=== PATIENT | female | born 1950 | race Caucasian/White ===

== ENCOUNTER 2016-11-15 11:09 | Inpatient (IN) | payer MEDICARE ==
[~2016-11-15] VITALS: Ht 162.6 cm; Wt 67.0 kg
[~2016-11-15 11:09] MED LIST: ALPRAZOLAM0.25 MG PO; ASPIRIN EC81 MG PO; CALCIUM500 M1 PO; CETIRIZINE HCL10 MG PO; CONSTULOSE10 GM/15 M PO; DIPHENHYDRAMINE25 MG PO; FISH OIL500 MG PO; FUROSEMIDE20 MG PO; FUROSEMIDE40 MG PO; LOSARTAN POTASS50 MG PO; MAGNESIUM250 M1 PO; MIRAPEX0.125 MG PO; MULTIVITAMINS1 EAC7 PO; NADOLOL20 MG PO; NICOTINE PATCH1 EA TD; OMEPRAZOLE20 MG PO; PRAMIPEXOLE0.125 MG PO; PROMETHAZINE HC25 M1 PO; SIMVASTATIN20 MG PO; SPIRONOLACTONE100 MG PO; SPIRONOLACTONE50 MG PO; VITAMIN D5000 UNIT PO; VITAMIN E400 UNI1 PO; XIFAXAN550 MG PO
--- NOTE | 2016-11-15 15:40 | NUR ---
MED REC COMPLETE [facility] REFILL HISTORY AND PATIENT DISCHRAGE FROM [facility] FROM A FEW DAYS AGO.
--- NOTE | 2016-11-15 17:16 | NUR ---
PT ARRIVED ON THE FLOOR FROM ER. PT WAS AWAKE AND CALM, WITH EYES OPEN. PT STATED SHE IS "VERY WEAK". PT WAS REMINDED THAT SHE MUST CALL PRIOR TO GETTING UP OR SHE WILL BE MOVED TO ANOTHER ROOM. PT AGREED TO CALL PRIOR TO GETTING UP.
--- NOTE | 2016-11-15 17:57 | NUR ---
PT ATE 50% OF DINNER MEAL. PT STATES NO PAIN. PT INCONT OF URINE X2. K RIDER AND MAG RIDER GIVEN, PT TOLERATED WELL.
--- NOTE | 2016-11-15 20:39 | NUR ---
PT ASSESSMENT COMPLETE. PT ALERT AND ORIENTED, RESTING IN BED. PT ON ROOM AIR. LUNG SOUNDS CLEAR, STATES "A LITTLE" SOB. WILL CONTINUE TO MONITOR. IV SALINE LOCKED, FLUSHES WELL, PATENT AND INTACT. PT REQUESTING HOME MEDS OF MIRAPEX FOR RLS AND XANAX FOR ANXIETY, CALLED MD AND RECEIVED NEW ORDERS FOR BOTH MEDS. PT DENIES ANY N/V AT THIS TIME. CALL LIGHT WITHIN REACH. PT DENIES ANY FURTHER NEEDS AT THIS TIME.
--- NOTE | 2016-11-15 23:46 | NUR ---
PT INCONTINENT OF STOOL AND URINE, CHANGED ATTENDS. PT ABLE TO REPOSITION SELF. PT DENIES ANY FURTHER NEEDS AT THIS TIME. CALL LIGHT WITHIN REACH.
--- NOTE | 2016-11-16 00:30 | NUR ---
NEW IV PLACED IN RIGHT AC, FLUSHES WELL, SALINE LOCKED. SUCCESSFUL IV START AFTER 6 ATTEMPTS BY MULTIPLE STAFF NURSES.
--- NOTE | 2016-11-16 01:54 | NUR ---
PT C/O BACK PAIN, NO PAIN MEDICATION AVAILABLE ON EMAR, HEAT PACK APPLIED TO LOWER BACK FOR COMFORT. PT DENIES ANY FURTHER NEEDS AT THIS TIME. CALL LIGHT WITHIN REACH.
--- NOTE | 2016-11-16 04:40 | NUR ---
PT SLEEPING, RR EVEN AND UNLABORED. PT APPEARS COMFORTABLE AT THIS TIME. CALL LIGHT WITHIN REACH.
--- NOTE | 2016-11-16 06:11 | NUR ---
PT HAD AN UNEVENTFUL NIGHT, SLEPT MOST OF NIGHT. PT DENIED ANY N/V THIS SHIFT. PT ON ROOM AIR. IV SALINE LOCKED. PT C/O BACK PAIN, HEAT PACKS APPLIED. PT INCONTINENT OF STOOL AND URINE. NEW IV STARTED IN RIGHT AC, FLUSHES WELL.
--- NOTE | 2016-11-16 08:14 | NUR ---
PATIENT SITTING UP IN BED, FULL BODY SKIN ASSESMENT DONE. NOTED SOME REDNESS TO COCCYX, PLAN TO PLACE ALLEVYN FOAM DSG TO COCCYX TO PREVENT BREAKDOWN AND ENCOURAGE PATIENT TO CHANGE POSITIONS IN BED THROUGHOUT DAY. POC DISCUSSED WITH CANDLE MAKER. LUNG SOUND COURSE THROUGHOUT AND DIMINISHED IN BASES. PATIENT REPORTED FEELING VERY ANXIOUS THIS MORNING, NOTED SOME SOB. ADMINISTERED PRN ANXIETY MEDICAITON. PATIENT NOW BREATHING EASY AND BRUSHING TEETH.
--- NOTE | 2016-11-16 11:34 | NUR ---
PLAN TO HAVE PARACENTESIS DONE THIS AFTERNOON, PER DR. PENA. SUPPLIES IN ROOM. PATIENT VERABLIZED UNDERSTANDING. NO COMPLAINTS OF PAIN. VOIDING STOOL X2 AND INCONTINENT OF URINE. ABDOMEN ROUND, PATIENT HAS COMPLAINTS OF SOB WITH EXERTION IN BED.
--- NOTE | 2016-11-16 13:32 | NUR ---
PATIENT LAYING AT 30 DEGREE ANGLE, APPEARS TO BE BREATHING EASY. INFORMED PATIENT WOULD BE LATER THIS AFTERNOON BEFORE DR. PENA WOULD BE ABLE TO PERFORM PARACENTESIS. NO COMPLAINTS OF PAIN AT THIS TIME. BOWEL TONES ACTIVE. LUNG SOUNDS COURSE THROUGHOUT. ENCOURAGED PATIENT TO USE IS. CONTINUES TO BE INCONTINTENT OF URINE AND STOOL. PROVIDING PATIENT WITH BARRIER CREAM.
--- NOTE | 2016-11-16 14:25 | NUR ---
PT BACK AFTER BEING DC'D LAST WEEK. SHE ADMITTED SHE IS VERY WEAK, AND WITH A TEAR IN HER EYE AFRAID SHE IS GOING TO . SHE ADMITTED THAT SHE HAS 6 "BEAUTIFUL" G.KIDS THAT SHE STILL WANTS TO SPOIL. WE TALKED ABOUT HER FEAR, AND HOW SHE STILL DOESN'T WANT THE SALES LEADER TO VISIT YET, BUT IS WANTING ME TO CONTINUE VISITING. WE PRAYED FOR HER BACK AND STOMACH TO STOP ACHING, AND FOR THE FLUID TO SUBSIDE, AND ALLOW HER TO BREATH BETTER. FLUID WILL BE DRAWN OFF LATER TODAY. WILL CONTINUE TO FOLLOW NEEDED
--- NOTE | 2016-11-16 18:10 | NUR ---
DR PENA TO ROOM TO PERFORM PARACENTESIS, PATIENT TOLERATING WELL. DRAINING YELLOW FLUID.
--- NOTE | 2016-11-16 18:40 | NUR ---
PARACENTESIS DONE THIS EVENING AT 1800 2.5L OF YELLLOW FLUID. PATIENT STATES " I FEEL SO MUCH BETTER", NOW LAYING MORE FLAT IN BED AND BREATHING EASY. VS STABLE THROUGHOUT DAY. ORAL K+ RIDER ADMINISTERED. PATIENT SAT ON EDGE OF BED, INCONTINENT THROUGHOUT DAY. APPETITE DECREASED FROM FLUID PRESSURE DURING DAY. LUNG SOUNDS COURSE THROUGHOUT.
--- NOTE | 2016-11-16 20:27 | NUR ---
PT ASSESSMENT COMPLETE. PT DENIES ANY PAIN, N/V, SOB. PT STATES FEELING MUCH BETTER SINCE "GETTING THE FLUID OFF MY BELLY TODAY". PT ON ROOM AIR. PT NOW SALINE LOCKED AFTER IV ABX. HS MEDS GIVEN. CALL LIGHT WITHIN REACH. PT DENIES ANY FURTHER NEEDS AT THIS TIME.
--- NOTE | 2016-11-17 00:15 | NUR ---
PT SLEEPING, RR EVEN AND UNLABORED. IV SALINE LOCKED. PT APPEARS COMFORTABLE. CALL LIGHT WITHIN REACH.
--- NOTE | 2016-11-17 04:30 | NUR ---
PT INCONTINENT OF STOOL AND URINE, CHANGED ATTENDS. PT ABLE TO REPOSITION SELF. PT DENIES ANY FURTHER NEEDS AT THIS TIME. CALL LIGHT WITHIN REACH.
--- NOTE | 2016-11-17 05:18 | NUR ---
DW WAS TAKEN THIS MORNING IN BED. BLANKETS AND EXTRA BEDDING WERE REMOVED.
--- NOTE | 2016-11-17 06:24 | NUR ---
PT HAD AN UNEVENTFUL NIGHT, SLEPT MOST OF NIGHT. PT INCONTINENT OF STOOL AND URINE. PT REFUSES TO GET OUT OF BED TO USE COMMODE. IV SALINE LOCKED, RECEIVING IV ABX. PT DENIED ANY PAIN, SOB, N/V THIS SHIFT. PT ALERT AND ORIENTED, PLEASANT.
--- NOTE | 2016-11-17 09:41 | NUR ---
PATIENT UP IN RECLINER, AUTO MECHANICS INSTRUCTOR PROVIDED BED BATH. PATIENT STATES " I AM FEELING WAY BETTER TODAY" LUNG SOUNDS COURSE THROUGHOUT. ABDOMEN SOFT, BOWEL TONES ACTIVE. NO COMPLAINTS OF PAIN. PATIENT REPORTS FEELING VERY WEAK WHEN ATTEMPTIING TO TRANSFER TO RECLINER.
--- NOTE | 2016-11-17 14:00 | NUR ---
PATIENT UP TO BSC, THEN TO RECLINER. EATING WELL, NO SOB. ABDOMEN CONTINUES TO BE SOFT, BOWEL TONES ACTIVE. PATIENT STATES " THIS IS A GOOD DAY".
--- NOTE | 2016-11-17 14:08 | NUR ---
GAVE PT A PRAYER SHAWL, BRIGHT PINK TO LIVEN THINGS UP! SHE SEEMED VERY THANKFUL. TALK TODAY IS OF HER LACK OF MOTIVATION TO GET UP AND WALK. WE DISCUSSED SOME OPTIONS TO ENCOURAGE HER AND KNOW THAT P.T. IS COMING! SHE JOKED ABOUT IT, A WAY TO SOFTEN THE BLOW OF HER OWN LACK OF MOTIVATION. PT REQUESTED PRAYER, WILL CONTINUE TO FOLLOW
--- NOTE | 2016-11-17 17:21 | NUR ---
Checked in room patient needed to be changed.
--- NOTE | 2016-11-17 20:20 | NUR ---
PT ASSESSMENT COMPLETE. PT DENIES ANY PAIN, N/V, SOB. ABD SOFT, NON-TENDER. IV NOW SALINE LOCKED, PATENT AND INTACT. PT ON ROOM AIR. PT RESTING IN BED WATCHING TV. PRN XANAX GIVEN WITH HS MEDS PER PT REQUEST. CALL LIGHT WITHIN REACH. PT DENIES ANY FURTHER NEEDS AT THIS TIME.
--- NOTE | 2016-11-17 22:46 | NUR ---
PT INCONTINENT OF URINE, CHANGED ATTENDS. PT RESTING COMFORTABLY IN BED. DENIES ANY FURTHER NEEDS AT THIS TIME. CALL LIGHT WITHIN REACH.
--- NOTE | 2016-11-18 01:03 | NUR ---
PT SLEEPING, RR EVEN AND UNLABORED. PT APPEARS COMFORTABLE AT THIS TIME. CALL LIGHT WITHIN REACH.
--- NOTE | 2016-11-18 05:08 | NUR ---
PT INCONTINENT OF STOOL AND URINE. RICK AREA EXCORIATED, DESITIN APPLIED. CHANGED ATTENDS. CALL LIGHT WITHIN REACH. PT DENIES ANY FURTHER NEEDS AT THIS TIME.
--- NOTE | 2016-11-18 10:00 | NUR ---
PATIENT UP SHOWERED, IN RECLINER. FULL BODY ASSESMENT DONE. PLAN TO DISCHARGE TO [facility] TODAY.
--- NOTE | 2016-11-18 11:39 | NUR ---
PT RESTING IN BED, WITH HER MAG IN RM. HE WAS POLITE, SHOOK MY HAND, AND LISTEN PT AND I CONNECTED. SHE HAD AWAN SHE SAID HER D.IN LAW BROUGHT HER. SHE SLEPT FAIRLY WELL AND SAID THAT SHE IS TO BE DC'D TODAY. AT THAT POINT HER WENT ON A RANT THAT SHE WAS HERE LAST WEEK, AND SHOULD NEVER BEEN SENT HOME-HE THINKS BECAUSE HE STATES, "[facility] ARE MAKING MEDICAL DECISIONS". FLUID WAS DRAWN OFF PT'S ABDOMEN AND SHE SAID THAT SHE CAN BREATH MUCH EASIER. SHE MENTIONED THAT SHE SLEPT WITH HER PRAYER KARENWL AND TO BE SURE TO THANK THE VOLUNTEERS THAT MADE IT. WILL CONTINUE TO FOLLOW NEEDED
--- NOTE | 2016-11-18 12:44 | NUR ---
TALKED WITH PT THIS AM, INFORMED HER THAT DR THINKS SHE NEEDS TO GO TO A SNF FOR REHAB FOR STRENGTHENING, PT STATES SHE DOES NOT WANT TO GO TO [facility]. AND WILL TALK WITH HER TODAY WHEN HE GETS HERE ABOUT WHERE. WHEN HERE I WENT IN TO TALK WITH HIM AND HE STARTED TALKING ABOUT WHY SHE WAS DC'D LAST WEEK AND HAD TO COME BACK INTO THE HOSPITAL--HE SENT HER HOME TO [facility]. I TOLD HIM I WOULD HAVE THE DR COME AND TALK WITH HIM ABOUT THAT. HE STATED HE DIDN'T WANT HER TO GO HOME AND WHY COULDN'T WE JUST KEEP HER HERE. AGAIN STATED I WOULD HAVE THE DR COME TALK WITH HIM. RECIEVED A MESSAGE THAT SHE DIDN'T WANT TO GO BACK THERE BECAUSE WHILE SHE WAS THERE SHE HAD A ROOMMATE THAT WAS CONFUSED AND TALKED TO HERSELF AND THEY ASKED IF SHE COULD BE CHANGED TO A DIFFERENT ROOM, SHE HAD A CONFUSED TALKATI VE PERSON. VERY UNHAPPY WITH THIS. I TALKED WITH ANTHONYKARLOS AT [facility] AND SHE ASSURED ME THAT SHE WOULD SEE THAT SHE DID NOT HAVE A CONFUSED TALKATIVE ROOMATE WHILE SHE IS THERE. FAXED CHART NOTES, ORDERS, RX, PASRR, ER NOTES, H AND P, PROG NOTES, IMAGING, MEDS, LAB, AND PT EVAL AND NOTES TO T.
[2016-11-18] MEDS ORDERED: DESITIN57 GM TOP (13:52)
[2016-11-18] MEDS ORDERED: MILK OF MA400 MG/5 M PO (14:02)
[2016-11-18] MEDS ORDERED: DULCOLAX10 MG PR (14:02)
[2016-11-18] MEDS ORDERED: FLEET ENEMA133 ML PR (14:03)
[2016-11-18] MEDS ORDERED: NICOTINE PATCH1 EA TD (14:05)
[2016-11-18] MEDS ORDERED: MIRAPEX0.25 MG PO (14:05)
[2016-11-18] MEDS ORDERED: ALPRAZOLAM0.25 MG PO (14:07)
== END 2016-11-18 14:39 | DRG 442 ==
LOC: ED 11:09 → MS 11:11
PROVIDERS: ADMIT Internal Medicine
PROC: 0W9G3ZX Drainage of Peritoneal Cavity, Percutaneous Approach, Diagnostic (ICD-10-PCS; principal; 2016-11-16)
DX: K72.90 Hepatic failure, unspecified without coma (principal); E87.1 Hypo-osmolality and hyponatremia; I85.00 Esophageal varices without bleeding; F10.21 Alcohol dependence, in remission; F17.210 Nicotine dependence, cigarettes, uncomplicated; K70.31 Alcoholic cirrhosis of liver with ascites
CPT/HCPCS: 36415; 49082; 49083; 71020; 76705; 80048; 80053; 81001; 82140; 82150; 82945; 83615; 83690; 83735; 84100; 84157; 84484; 85025; 85610; 85730; 87070; 87075; 87205; 96360; 97110; 97162; 99285; 99406; G0480; G8978; G8979; J0698; J3475; J3480; J7040

== ENCOUNTER 2017-12-09 19:05 | Emergency (ER) | payer MEDICARE ==
[~2017-12-09] VITALS: Ht 162.6 cm; Wt 61.2 kg
[~2017-12-09 19:05] MED LIST changes: +DESITIN57 GM TOP; +DULCOLAX10 MG PR; +FLEET ENEMA133 ML PR; +MILK OF MA400 MG/5 M PO; +MIRAPEX0.25 MG PO
[2017-12-09] MEDS ORDERED: ALDACTONE25 MG PO (19:22)
[2017-12-09] MEDS ORDERED: MAGNESIUM100 MG PO (19:23)
[2017-12-09] MEDS ORDERED: K-TAB ER20 MEQ PO (19:23)
== END 2017-12-09 20:00 | disposition home or self-care (01) ==
LOC: ED 19:05
PROC: 0HQDXZZ Repair Right Lower Arm Skin, External Approach (ICD-10-PCS; principal; 2017-12-09)
DX: S51.811A Laceration without foreign body of right forearm, initial encounter (principal); S01.03XA Puncture wound without foreign body of scalp, initial encounter; W10.9XXA Fall (on) (from) unspecified stairs and steps, initial encounter; I10 Essential (primary) hypertension; E78.00 Pure hypercholesterolemia, unspecified; F17.200 Nicotine dependence, unspecified, uncomplicated; Z88.5 Allergy status to narcotic agent; Z79.899 Other long term (current) drug therapy
CPT/HCPCS: 90471; 90715; 99282

== ENCOUNTER 2018-03-23 22:05 | Emergency (ER) | payer MEDICARE ==
[~2018-03-23] VITALS: Ht 162.6 cm; Wt 63.9 kg
--- OUTSIDE RECORDS SUMMARY | ~2018-03-23 | XMS | Clinical Summary ---
Demographics + + + | Address | [address] | | | [place] [address] | + + + | Home Phone | | + + + | Preferred Language | Unknown | + + + | Marital Status | | + + + | Mu-Ism Affiliation | 1041 | + + + | Race | Unknown | + + + | Ethnic Group | Unknown | + + + Author + + + | Author | [facility] | | | and [place] | + + + | Organization | [facility] | | | and [place] | + + + | Address | Unknown | + + + | Phone | Unavailable | + + + Support + + + + + | Name | Relationship | Address | Phone | + + + + + | Toribio Davila | [address] | [place] [address] | | | | | [place] [address] | | + + + + + Care Team Providers + +------+ + | Care Pre Fabricator Name | Role | Phone | + +------+ + | Taj Teixeira DO | PP | Unavailable | + +------+ + Allergies + + + + + + | Active Allergy | Reactions | Severity | Noted | Comments | | | | | Date | | + + + + + + | Oxycodone | Itching | Low | 01/25/20 | | | | | | 13 | | + + + + + + Current Medications + + + +---------+------+------+-------+ | Prescription | Sig. | Disp. | Refills | Star | End | Statu | | | | | | t | Date | s | | | | | | Date | | | + + + +---------+------+------+-------+ | nadolol (CORGARD) | Take 10 mg by mouth | | | | | Activ | | 20 MG tablet | Daily. | | | | | e | + + + +---------+------+------+-------+ | HYDROmorphone | Take 0.5 tablets by | 20 | 0 | 08/3 | | Activ | | (DILAUDID) 2 mg | mouth every 4 hours | tablet | | 1/20 | | e | | tablet | as needed for Pain. | | | 16 | | | + + + +---------+------+------+-------+ | lactulose 10 g/15 | Take 30 mLs by mouth | 946 mL | 3 | 08/3 | | Activ | | mL solution | 2 times daily. | | | 1/20 | | e | | | | | | 16 | | | + + + +---------+------+------+-------+ | spironolactone | Take 1 tablet by | 60 | 3 | 08/3 | | Activ | | (ALDACTONE) 100 MG | mouth 2 times daily. | tablet | | 1/20 | | e | | tablet | | | | 16 | | | + + + +---------+------+------+-------+ | omeprazole | Take 1 capsule by | 30 | 1 | 08/3 | | Activ | | (PRILOSEC) 20 mg | mouth every morning | capsule | | 1/20 | | e | | capsule | (before breakfast). | | | 16 | | | + + + +---------+------+------+-------+ | furosemide (LASIX) | Take 1 tablet by | 60 | 1 | 08/3 | | Activ | | 40 mg tablet | mouth Daily. | tablet | | 1/20 | | e | | | | | | 16 | | | + + + +---------+------+------+-------+ | pramipexole | Take 0.125 mg by | | | | | Activ | | (MIRAPEX) 0.125 MG | mouth nightly. Take | | | | | e | | tablet | three at bedtime | | | | | | + + + +---------+------+------+-------+ | ALPRAZolam (XANAX) | Take 0.25 mg by | | | | | Activ | | 0.25 mg tablet | mouth 3 times daily | | | | | e | | | as needed for | | | | | | | | Anxiety. | | | | | | + + + +---------+------+------+-------+ | traMADol (ULTRAM) | Take 50 mg by mouth | | | | | Activ | | 50 mg tablet | every 6 hours as | | | | | e | | | needed for Pain. | | | | | | + + + +---------+------+------+-------+ Active Problems + + + | Problem | Noted Date | + + + | Smoker - Daily | 03/09/2016 | + + + | Restless leg syndrome | 03/09/2016 | + + + | Beta Jeremi Use | 03/09/2016 | + + + | Spontaneous bacterial peritonitis (HCC) | 01/15/2016 | + + + | Type 2 diabetes mellitus without complication (HCC) | 01/08/2016 | + + + | Hyponatremia | 01/07/2016 | + + + | Special screening for malignant neoplasms, colon | 06/11/2014 | + + + | Esophageal varices without mention of bleeding | 06/11/2014 | + + + + + | Overview: ICD-10 Record update | + + + +---+ | Melanoma in situ (HCC) | | + +---+ + + | Overview: left thigh | + + + +---+ | Alcohol dependence (HCC) | | + +---+ | Hypertension | | + +---+ | Impaired fasting glucose | | + +---+ | Chronic liver disease | | + +---+ | Ascites | | + +---+ | Cirrhosis (HCC) | | + +---+ | Esophageal varices (HCC) | | + +---+ Immunizations + + + + | Name | Dates Previously Given | Next Due | + + + + | PNEUMOCOCCAL | 12/29/2010 | | | POLYSACCHARIDE | | | | 23-VALENT (PPSV23) | | | + + + + Family History + + +------+ + | Medical History | Relation | Name | Comments | + + +------+ + | Alcohol abuse | Brother | | | + + +------+ + | Alcohol abuse | Father | | | + + +------+ + | Stroke | Father | | | + + +------+ + | Heart attack | Mother | | | + + +------+ + | Stroke | Mother | | | + + +------+ + | Diabetes | Other | | | + + +------+ + | High blood pressure | Other | | | + + +------+ + | High cholesterol | Other | | | + + +------+ + | Cancer | Sister | | BREAST | + + +------+ + + +------+ + + | Relation | Name | Status | Comments | + +------+ + + | Brother | | | | + +------+ + + | Father | | | | + +------+ + + | Mother | | | | + +------+ + + | Other | | | | + +------+ + + | Sister | | Alive | | + +------+ + + Social History + + + +--------+------+ | Tobacco Use | Types | Packs/Day | Years | Date | | | | | Used | | + + + +--------+------+ | Current Every Day | Cigarettes | 0.5 | 20 | | | Smoker | | | | | + + + +--------+------+ + +---+---+---+ | Smokeless Tobacco: | | | | | Never Used | | | | + +---+---+---+ + + | Tobacco Cessation: Ready to Quit: No; Counseling Given: Yes | + + + + +---------+ + | Alcohol Use | Drinks/We | oz/Week | Comments | | | ek | | | + + +---------+ + | No | | | binge drinker quit one week ago 01/18/13 | + + +---------+ + + + + | Sex Assigned at | Date Recorded | | | | + + + | Not on file | | + + + Last Filed Vital Signs + + + + | Vital Sign | Reading | Time Taken | + + + + | Blood Pressure | 110/57 | 03/09/20161444 PDT | + + + + | Pulse | 76 | 03/09/20161444 PDT | + + + + | Temperature | 36.1 C (97 F) | 03/09/20161311 PDT | + + + + | Respiratory Rate | 18 | 03/09/20161444 PDT | + + + + | Oxygen Saturation | 97% | 03/09/20161444 PDT | + + + + | Inhaled Oxygen | - | - | | Concentration | | | + + + + | Weight | 80.2 kg (176 lb 12.9 | 01/11/2016639 PDT | | | oz) | | + + + + | Height | 162.6 cm (5' 4") | 01/07/2016 1421 PDT | + + + + | Body Mass Index | 30.35 | 01/11/2016639 PDT | + + + + Plan of Treatment + + + + + | Health Maintenance | Due Date | Last Done | Comments | + + + + + | Hepatitis C | | | | | Screening | 0 | | | + + + + + | Diabetic Eye Exam | | | | | | 8 | | | + + + + + | Diabetic Foot Exam | | | | | | 8 | | | + + + + + | Vaccine: | | | | | Dtap/Tdap/Td (1 - | 9 | | | | Tdap) | | | | + + + + + | BREAST CANCER | | | | | SCREENING (MAMM Q2 | 0 | | | | YEARS 50-74) | | | | + + + + + | Vaccine: Zoster (1 | | | | | of 2) | 0 | | | + + + + + | Vaccine: | | 12/29/2010 | | | Pneumococcal 65+ | 5 | | | | Low/Medium Risk (1 | | | | | of 2 - PCV13) | | | | + + + + + | Adult Annual | | | | | Wellness Visit | 5 | | | + + + + + | Microalbumin | | | | | Screening | 5 | | | + + + + + | Hemoglobin A1c Q3 | | 01/07/2016, 05/01/2014 | | | Months | 6 | | | + + + + + | Vaccine: Influenza | | | | | (#1) | 8 | | | + + + + + | Colorectal Cancer | | 06/16/2014, 06/16/2014 | | | Screening | 5 | | | | (Colonoscopy) | | | | + + + + + Results Not on filefrom Last 3 Months Insurance + +--------+ +--------+ +---------+ | Payer | Benefi | Subscriber | Type | Phone | Address | | | t Plan | ID | | | | | | / | | | | | | | Group | | | | | + +--------+ +--------+ +---------+ | MEDICARE | MEDICA | [id number] | Medica | [phone] | | | | RE | | re | [phone] | | | | PART A | | | | | | | AND B | | | | | + +--------+ +--------+ +---------+ | AARP | AARP | [id number] | Indemn | [phone] | | | | MDCR | | ity | [phone] | | | | SUPPL | | | | | + +--------+ +--------+ +---------+ + +--------+ +--------+ + + | Guarantor Name | Accoun | Relation to | Date | Phone | Billing Address | | | t Type | Patient | of | | | | | | | | | | + +--------+ +--------+ + + | VANNESA DAVILA | Person | Self [birth year] Home: | [address] [employer] | | | al/Fam | | [phone] | [phone] | [place] [address] | | | corrine | | | [phone] | | + +--------+ +--------+ + +
--- OUTSIDE RECORDS SUMMARY | ~2018-03-23 | XMS | Clinical Summary ---
Demographics + + + | Address | [address] | | | [place] [address] | + + + | Home Phone | | + + + | Preferred Language | Unknown | + + + | Marital Status | | + + + | Latter Day Affiliation | 1041 | + + + | Race | Unknown | + + + | Ethnic Group | Unknown | + + + Author + + + | Author | [facility] | + + + | Organization | [facility] | + + + | Address | Unknown | + + + | Phone | Unavailable | + + + Support + + + + + | Name | Relationship | Address | Phone | + + + + + | Ja Davila | ECON | [address] | | | | | [place] [address] | | + + + + + Care Team Providers + +------+ + | Care Custom Miller Name | Role | Phone | + +------+ + | Humphrey Teixeira DO | PP | | + +------+ + Allergies + + + + + + | Active Allergy | Reactions | Severity | Noted | Comments | | | | | Date | | + + + + + + | Oxycodone | Itching | Medium | 12/31/19 | | | | | | 15 | | + + + + + + Current Medications + + + +---------+------+------+-------+ | Prescription | Sig. | Disp. | Refills | Star | End | Statu | | | | | | t | Date | s | | | | | | Date | | | + + + +---------+------+------+-------+ | simvastatin | Take 20 mg by mouth | | | | | Activ | | (ZOCOR) 20 MG tablet | nightly. | | | | | e | + + + +---------+------+------+-------+ | nadolol (CORGARD) | Take 10 mg by mouth | | | | | Activ | | 20 MG tablet | daily. | | | | | e | + + + +---------+------+------+-------+ | spironolactone | Take 100 mg by mouth | | | | | Activ | | (ALDACTONE) 100 MG | daily. | | | | | e | | tablet | | | | | | | + + + +---------+------+------+-------+ | omeprazole | Take 20 mg by mouth | | | | | Activ | | (PRILOSEC) 20 MG | 2 (two) times daily. | | | | | e | | capsule | | | | | | | + + + +---------+------+------+-------+ | pramipexole | Take 0.125 mg by | | | | | Activ | | (MIRAPEX) 0.125 MG | mouth every evening. | | | | | e | | tablet | | | | | | | + + + +---------+------+------+-------+ | cetirizine | Take 10 mg by mouth | | | | | Activ | | (ZYRTEC) 10 MG | daily. | | | | | e | | tablet | | | | | | | + + + +---------+------+------+-------+ | Multiple Vitamin | Take 1 tablet by | | | | | Activ | | (MULTIVITAMIN) | mouth daily. | | | | | e | | tablet | | | | | | | + + + +---------+------+------+-------+ | fish oil omega-3 | Take 500 mg by mouth | | | | | Activ | | fatty acids 1000 MG | daily. | | | | | e | | capsule | | | | | | | + + + +---------+------+------+-------+ | diphenhydrAMINE | Take 25 mg by mouth | | | | | Activ | | (SOMINEX) 25 MG | nightly as needed | | | | | e | | tablet | for Sleep. | | | | | | + + + +---------+------+------+-------+ | thiamine (VITAMIN | Take 1 tablet by | 7 | 11 | 08/1 | | Activ | | B-1) 100 MG tablet | mouth daily. | tablet | | 4/20 | | e | | | | | | 15 | | | + + + +---------+------+------+-------+ | Cholecalciferol | Take 5,000 Units by | | | | | Activ | | 5000 UNITS capsule | mouth daily. | | | | | e | + + + +---------+------+------+-------+ | lactobacillus | Take 1 packet by | 30 each | 0 | 04/0 | | Activ | | (FLORANEX) granules | mouth 2 (two) times | | | 3/20 | | e | | | daily. | | | 16 | | | + + + +---------+------+------+-------+ | rifaximin | Take 1 tablet by | 60 | 1 | 04/0 | | Activ | | (XIFAXAN) 550 MG | mouth 2 (two) times | tablet | | 3/20 | | e | | TABS | daily. | | | 16 | | | + + + +---------+------+------+-------+ Active Problems + + + | Problem | Noted Date | + + + | Intestinal infection due to Clostridium difficile | 08/20/2015 | + + + | Acute upper GI bleed | 08/18/2015 | + + + | Secondary esophageal varices with bleeding (HCC) | 08/18/2015 | + + + | Elevated lipase | 08/18/2015 | + + + | Current smoker | 08/18/2015 | + + + | Abnormal LFTs | 08/18/2015 | + + + | HTN (hypertension) | 12/30/2014 | + + + | Alcoholic cirrhosis of liver | 12/30/2014 | + + + | Hyposmolality and/or hyponatremia | 12/30/2014 | + + + | Alcoholism (HCC) | 12/30/2014 | + + + | Hypomagnesemia | 12/30/2014 | + + + Immunizations + + + + | Name | Dates Previously Given | Next Due | + + + + | Pneumococcal | 12/31/2014 | | | Polysaccharide | | | | 23-valent | | | + + + + Family History + + +------+ + | Medical History | Relation | Name | Comments | + + +------+ + | Stroke | Father | | | + + +------+ + | Other (see comments) | Mother | | at 90 from old age | + + +------+ + + +------+--------+ + | Relation | Name | Status | Comments | + +------+--------+ + | Father | | | | + +------+--------+ + | Mother | | | | + +------+--------+ + Social History + +-------+ +--------+------+ | Tobacco Use | Types | Packs/Day | Years | Date | | | | | Used | | + +-------+ +--------+------+ | Current Every Day | | 0.5 | 20 | | | Smoker | | | | | + +-------+ +--------+------+ + +---+---+---+ | Smokeless Tobacco: | | | | | Never Used | | | | + +---+---+---+ + + +---------+ + | Alcohol Use | Drinks/We | oz/Week | Comments | | | ek | | | + + +---------+ + | Yes | | | heavy alcohol use 5+ "rum & coke" per day | + + +---------+ + + + + | Sex Assigned at | Date Recorded | | | | + + + | Not on file | | + + + Last Filed Vital Signs + + + + | Vital Sign | Reading | Time Taken | + + + + | Blood Pressure | 150/74 | 08/23/2015 8:04 AM PDT | + + + + | Pulse | 65 | 08/23/2015 8:04 AM PDT | + + + + | Temperature | 36.4 C (97.6 F) | 08/23/2015 8:04 AM PDT | + + + + | Respiratory Rate | 18 | 08/23/2015 8:04 AM PDT | + + + + | Oxygen Saturation | 96% | 08/23/2015 8:04 AM PDT | + + + + | Inhaled Oxygen | - | - | | Concentration | | | + + + + | Weight | 80.3 kg (177 lb 1.6 | 08/23/2015 3:18 AM PDT | | | oz) | | + + + + | Height | 162.6 cm (5' 4.02") | 08/18/2015 2:44 AM PDT | + + + + | Body Mass Index | 30.38 | 08/23/2015 3:18 AM PDT | + + + + Plan of Treatment + + + + + | Health Maintenance | Due Date | Last Done | Comments | + + + + + | Vaccine: | | | | | Dtap/Tdap/Td (1 - | 9 | | | | Tdap) | | | | + + + + + | Breast Cancer | | | | | Screening | 0 | | | | (Mammogram) | | | | + + + + + | Colon Cancer | | | | | Screening | 0 | | | | (Colonoscopy) | | | | + + + + + | Vaccine: Zoster (1 | | | | | of 2) | 0 | | | + + + + + | DEXA SCAN SCREENING | | | | | | 5 | | | + + + + + | Vaccine: | | 12/31/2014 | | | Pneumococcal 65+ | 6 | | | | Low/Medium Risk (2 | | | | | of 2 - PCV13) | | | | + + + + + | Vaccine: Influenza | | | | | (#1) | 8 | | | + + + + + Results Not on filefrom Last 3 Months Insurance + +--------+ +------+-------+ + | Payer | Benefi | Subscriber | Type | Phone | Address | | | t Plan | ID | | | | | | / | | | | | | | Group | | | | | + +--------+ +------+-------+ + | MEDICARE | MEDICA | [id number] | | | [address] | | | RE | | | | [place] [phone] | | | IP-OP | | | | | + +--------+ +------+-------+ + | [employer] | UNITED | [id number] | | | | | | | | | | | | | HEALTH | | | | | | | CARE - | | | | | | | [employer]ARP | | | | | + +--------+ +------+-------+ + + +--------+ +--------+ + + | Guarantor Name | Accoun | Relation to | Date | Phone | Billing Address | | | t Type | Patient | of | | | | | | | | | | + +--------+ +--------+ + + | VANNESA DAVILA | Person [birth year] Self [birth year] Home: | [address] [place] [address] | | | al/Fam | | [phone] | [phone] [place] [phone] | | | corrine | | | [phone] | | + +--------+ +--------+ + +
--- OUTSIDE RECORDS SUMMARY | ~2018-03-23 | XMS | Clinical Summary ---
Demographics + + + | Address | [address] | | | [place] [address] | + + + | Home Phone | | + + + | Preferred Language | Unknown | + + + | Marital Status | | + + + | Oriental Orthodox Affiliation | 1041 | + + + | Race | Unknown | + + + | Ethnic Group | Unknown | + + + Author + + + | Author | [facility] | | | and Ectorana | + + + | Organization | [facility] | | | [...] | | | | | [place] [address] | | + + + + + Care Team Providers + +------+ + | Care Smoke Eater Name | Role | Phone | + [...] +--------+ +---------+ | MEDICARE | MEDICA | [id number] | Medica | +1- | | | | RE | | re | [phone] | | | | PART A | | | | | | | AND B | | | | | + +--------+ +--------+ +---------+ | AARP | AARP | [id number] | Indemn | [phone] | | | | MDCR | | [...] [birth year] | 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
--- OUTSIDE RECORDS SUMMARY | ~2018-03-23 | XMS | Clinical Summary ---
Demographics + + + | Address | [address] | | | [place] [address] | + + + | Home Phone | | + + + | Preferred Language | Unknown | + + + | Marital Status | | + + + | Taoist Affiliation | 1041 | + + + | Race | Unknown | + + + | Ethnic Group | Unknown | + + + Author + + + | Author | [facility] | + + + | Organization | [facility] | + + + | Address | Unknown | + + + | Phone | Unavailable | + + + Support + + + + + | Name | Relationship | Address | Phone | + + + + + | Ja Davila | ECON | [id number] | | | | | [place] [address] | | + + + + + Care Team Providers + +------+ + | Care Electric Motor Analyst Name | Role | Phone | + [...] +------+-------+ + | MEDICARE | MEDICA | [id number] | | | [address] | | | RE | | | | [place] [address] | | | IP-OP | | | | | + +--------+ +------+-------+ + | UNITED [employer]CARE | UNITED | [id number] | | | | | | | [...] | Self | [birth year] | Home: | [address] [place] [address] | | | al/Fam | | 1951 | [phone] | [place] [address] | | | corrine | | | [phone] | | + +--------+ +--------+ + +
[~2018-03-23 22:05] MED LIST changes: +ALDACTONE25 MG PO; +K-TAB ER20 MEQ PO; +MAGNESIUM100 MG PO
[2018-03-23] MEDS ORDERED: GABAPENTIN300 MG PO (22:33)
[2018-03-23] MEDS ORDERED: ESCITALOPRAM OX10 MG PO (22:33)
[2018-03-23] MEDS ORDERED: FLUOXETINE HCL20 MG PO (22:33)
[2018-03-23] MEDS ORDERED: CORGARD20 MG PO (22:34)
[2018-03-23] MEDS ORDERED: VITAMIN D31000 UNI1 PO (22:34)
[2018-03-23] MEDS ORDERED: MAG-OXIDE400 MG PO (22:35)
[2018-03-23] MEDS ORDERED: IRON325 M1 PO (22:39)
[2018-03-23] MEDS ORDERED: DISULFIRAM500 MG PO (22:39)
--- OUTSIDE RECORDS SUMMARY | 2018-03-24 01:30 | XMS ---
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 Enmanuel VISIT COUNT (12 MO.) [address] [facility] TOTAL 5 NOTE: Visits indicate total known visits. ED/UCC VISIT TRACKING (12 MO.) [facility] 03/23/2018 22:06 [facility] [place] TYPE: Emergency COMPLAINT: - MULTIPLE COMPLAINTS 12/09/2017 19:06 [facility] [place] TYPE: Emergency COMPLAINT: - HEAD, ARM LACERATION DIAGNOSES: - Laceration without foreign body of right forearm, initial encounter - Fall (on) (from) unspecified stairs and steps, initial encounter - Other mcc (current) drug therapy - PURE HYPERCHOLESTEROLEMIA, UNSPECIFIED - Puncture wound without foreign body of scalp, initial encounter - Allergy status to narcotic agent status - Pure hypercholesterolemia, unspecified - Essential (primary) hypertension - Nicotine dependence, unspecified, uncomplicated 09/04/2017 21:50 [facility] [place] TYPE: Emergency DIAGNOSES: - Acute posthemorrhagic anemia - Gastrointestinal hemorrhage, unspecified - PASSED OUT, VOMITING BLOOD 06/20/2017 03:56 [facility] [place] TYPE: Emergency DIAGNOSES: - Unspecified intestinal obstruction, unspecified as to partial versus complete obstruction - Hematemesis - VOMITING BLOOD, ABD PAIN - Gastrointestinal hemorrhage, unspecified - Umbilical hernia without obstruction or gangrene INPATIENT VISIT TRACKING (12 MO.) 09/04/2017 21:50 [facility] [place] TYPE: Medical Surgical DIAGNOSES: - Acute posthemorrhagic anemia - Gastrointestinal hemorrhage, unspecified 06/20/2017 03:56 [facility] [place] TYPE: Medical Surgical DIAGNOSES: - Unspecified intestinal obstruction, unspecified as to partial versus complete obstruction - Hematemesis - Gastrointestinal hemorrhage, unspecified - Umbilical hernia without obstruction or gangrene [id number]
== END 2018-03-24 01:10 | disposition short-term general hospital (02) ==
LOC: ED 22:05
DX: K92.2 Gastrointestinal hemorrhage, unspecified (principal); I10 Essential (primary) hypertension; F17.200 Nicotine dependence, unspecified, uncomplicated; Z88.5 Allergy status to narcotic agent; Z79.899 Other long term (current) drug therapy
CPT/HCPCS: 36430; 80053; 82140; 85025; 85610; 85730; 86850; 86900; 86901; 86920; 96361; 96374; 96375; 99285; C9113; J2354; J2405; J7030; J7040; J7050